=== PATIENT | female | born 1960 | race African-American/Black ===

== ENCOUNTER 2017-12-04 14:33 | Inpatient (IN) ==
[2017-12-04 15:30] LABS: Basophils % 0.5 % (0.0-0.8); Eosinophils # 0.1 10*3/uL (0.0-0.87); Eosinophils % 2.1 % (0.00-10.9); Hematocrit 36.3 VOL% (35.7-47.0); Hemoglobin 11.7 GM/DL (12.0-16.0); Immature Granulocytes % 0.3 %; Immature Granulocytes Absolute 0.01 #; Lymphocytes # 1.2 10*3/uL (1.4-4.0); Lymphocytes % 31.6 % (21.3-54.2); Mean Corpuscular HGB Conc 32.2 GM/DL (32-36); Mean Corpuscular Hemoglobin 27 PG (27-34); Mean Corpuscular Volume 84.2 FL (87-102); Monocytes # 0.4 10*3/uL (0.11-0.8); Monocytes % 10.1 % (1.7-12.7); Neutrophils # 2.1 10*3/uL (1.4-7.4); Neutrophils % 55.4 % (38.7-73.9); Platelet Count 172 T/CUMM (130-400); Red Blood Count 4.31 MC/CUMM (3.8-5.5); Red Cell Distribution Width 15.3 % (9.3-17.3); White Blood Count 3.8 T/CUMM (4-12)
[2017-12-04] MEDS ORDERED: ASPIRIN 325 MG TABLET PO STA (15:31)
[2017-12-04] MEDS ORDERED: ASPIRIN 325 MG TABLET ONE (15:33)
[2017-12-04 15:49] LABS: INR 0.9
[2017-12-04 15:51] LABS: Alanine Aminotransferase 23 U/L (13-56); Alkaline Phosphatase 114 U/L (45-117); Aspartate Amino Transferase 16 U/L (0-37); Bilirubin,Total < 0.39 MG/DL (0.2-1.0); Blood Urea Nitrogen 20 MG/DL (7-18); Glucose 80 MG/DL (74-106); Osmolality,Calculated 289.7 MOS/KG (273-304); Potassium 3.1 MMOL/L (3.5-5.1); Sodium 145 MMOL/L (136-145); Total Protein 7.7 G/DL (6.4-8.3); Troponin I Only < 0.015 NG/ML (0.00-0.045)
[2017-12-04] MEDS ORDERED: PANTOPRAZOLE 40 MG VIAL IV STA (15:57)
[2017-12-04] MEDS ORDERED: ONDANSETRON 4 MG/2 ML VIAL IV STA (15:57)
[2017-12-04] MEDS ORDERED: SODIUM CHLORIDE 0.9% 500 ML IV STA (15:57)
[2017-12-04] MEDS ORDERED: HYDROmorphone 2 MG/1 ML VIAL IV STA (15:57)
[2017-12-04] MEDS ORDERED: ALUM/MAG/SIMETH/LIDO VISC 1:1 30 ML BOTTLE PO STA (15:57)
[2017-12-04] MEDS ORDERED: PANTOPRAZOLE 40 MG VIAL IV ONE (16:43)
[2017-12-04] MEDS ORDERED: POTASSIUM CHLORIDE 20 MEQ TABLET PO STA (16:43)
[2017-12-04] MEDS ORDERED: ONDANSETRON 4 MG/2 ML VIAL ONE (16:43)
[2017-12-04] MEDS ORDERED: ALUM/MAG/SIMETH/LIDO VISC 1:1 30 ML BOTTLE PO ONE (16:43)
[2017-12-04] MEDS ORDERED: POTASSIUM CHLORIDE 20 MEQ TABLET PO ONE (17:00)
[2017-12-04 17:07] LABS: Apearance,Urine Slightly Hazy (Clear); Bilirubin,Urine Negative (Negative); Blood, Urine Negative (Negative); Glucose,Urine (UA) Negative (Negative); Hyaline Casts,Urine 1 /LPF (0-3); Ketones,Urine Negative (Negative); Mucus,Urine Occasional /LPF (Occasional); Nitrite,Urine Negative (Negative); Protein,Urine Negative; RBC,Urine 1 /HPF (0-4); Squamous Epithelial Cell,Urine Occasional /HPF (0-10); Urine Color Yellow (Yellow); Urine Specific Gravity 1.023 (1.001-1.035); Urine Urobilinogen < 2.0 EU/DL (0.2-1.0); WBC,Urine 4 /HPF (0-6)
[2017-12-04] MEDS ORDERED: ONDANSETRON 4 MG/2 ML VIAL IV PRN (20:41)
[2017-12-04] MEDS ORDERED: MORPHINE 2 MG/1 ML SYRINGE IV PRN (20:41)
[2017-12-04] MEDS: ACETAMINOPHEN 325 MG TABLET PO PRN (21:13)
[2017-12-04] MEDS: ENOXAPARIN 80 MG/0.8 ML SYRINGE SUBCUT SCH (21:14)
[2017-12-04] MEDS: DOCUSATE SODIUM 100 MG CAPSULE PO SCH (21:14)
[2017-12-04] MEDS: SODIUM CHLORIDE 0.9% 1,000 ML IV SCH (21:15)
[2017-12-05] MEDS: NITROGLYCERIN 2% OINT 1 INCH/GM PACK TOP SCH ×5 (00:07→18:20)
[2017-12-05 00:41] LABS: Basophils % 0.8 % (0.0-0.8); Eosinophils # 0.1 10*3/uL (0.0-0.87); Eosinophils % 3.4 % (0.00-10.9); Hematocrit 31.6 VOL% (35.7-47.0); Immature Granulocytes % 0.3 %; Immature Granulocytes Absolute 0.01 #; Lymphocytes # 1.7 10*3/uL (1.4-4.0); Lymphocytes % 44.8 % (21.3-54.2); Mean Corpuscular HGB Conc 31.6 GM/DL (32-36); Mean Corpuscular Hemoglobin 27 PG (27-34); Mean Corpuscular Volume 83.6 FL (87-102); Monocytes # 0.4 10*3/uL (0.11-0.8); Neutrophils # 1.5 10*3/uL (1.4-7.4); Neutrophils % 39.7 % (38.7-73.9); Platelet Count 150 T/CUMM (130-400); Red Blood Count 3.78 MC/CUMM (3.8-5.5); Red Cell Distribution Width 15.4 % (9.3-17.3); White Blood Count 3.8 T/CUMM (4-12)
[2017-12-05 01:16] LABS: Alanine Aminotransferase 18 U/L (13-56); Albumin 3.2 G/DL (3.4-5.0); Alkaline Phosphatase 98 U/L (45-117); Aspartate Amino Transferase 13 U/L (0-37); Bilirubin,Total < 0.39 MG/DL (0.2-1.0); Blood Urea Nitrogen 16 MG/DL (7-18); Calcium 8.1 MG/DL (8.5-10.1); Cholesterol 163 MG/DL (50-200); Glucose 105 MG/DL (74-106); HDL Cholesterol 72 MG/DL (40-60); Osmolality,Calculated 292.4 MOS/KG (273-304); Potassium 3.7 MMOL/L (3.5-5.1); Risk Ratio 2.26; Sodium 147 MMOL/L (136-145); Total Protein 5.6 G/DL (6.4-8.3); Triglycerides 75 MG/DL (2-150)
[2017-12-05] MEDS: ACETAMINOPHEN 325 MG TABLET PO PRN (13:08)
[2017-12-05] MEDS: LISINOPRIL 20 MG TABLET PO SCH (13:55)
[2017-12-05] MEDS: CHOLECALCIFEROL 5,000 UNIT TABLET PO SCH (13:55)
[2017-12-05] MEDS: ENOXAPARIN 80 MG/0.8 ML SYRINGE SUBCUT SCH (13:56)
[2017-12-05] MEDS: PANTOPRAZOLE 40 MG TABLET PO SCH (13:56)
[2017-12-05] MEDS: hydroCHLOROthiazide 12.5 MG CAPSULE PO SCH (13:56)
[2017-12-05] MEDS: NEBIVOLOL 5 MG TABLET PO SCH (13:56)
[2017-12-05] MEDS: ASPIRIN EC 81 MG TABLET PO SCH (13:56)
[2017-12-05] MEDS: DOCUSATE SODIUM 100 MG CAPSULE PO SCH ×2 (13:59→21:24)
[2017-12-06] MEDS: SODIUM CHLORIDE 0.9% 1,000 ML IV SCH (07:30)
[2017-12-06] MEDS: NITROGLYCERIN 2% OINT 1 INCH/GM PACK TOP SCH (07:31)
[2017-12-06] MEDS ORDERED: FERROUS SULFATE 325 MG TABLET PO SCH (09:00)
[2017-12-06] MEDS ORDERED: PROPOFOL 200 MG/20 ML VIAL IV ONE (09:00)
[2017-12-06] MEDS ORDERED: POTASSIUM GLUCONATE 500 MG TABLET PO SCH (09:00)
[2017-12-06] MEDS ORDERED: LIDOCAINE 2% 5 ML VIAL ONE (09:00)
[2017-12-06 13:00] VITALS: BP 120/71
[2017-12-06] MEDS: DOCUSATE SODIUM 100 MG CAPSULE PO SCH (15:28)
[2017-12-06] MEDS: ASPIRIN EC 81 MG TABLET PO SCH (15:29)
[2017-12-06] MEDS: hydroCHLOROthiazide 12.5 MG CAPSULE PO SCH (15:29)
[2017-12-06] MEDS: NEBIVOLOL 5 MG TABLET PO SCH (15:29)
[2017-12-06] MEDS: CHOLECALCIFEROL 5,000 UNIT TABLET PO SCH (15:29)
[2017-12-06] MEDS: PANTOPRAZOLE 40 MG TABLET PO SCH (15:29)
[2017-12-06] MEDS: LISINOPRIL 20 MG TABLET PO SCH (15:32)
== END 2017-12-06 16:45 | disposition home or self-care (01) | DRG 384 ==
LOC: N.ED 14:33 → N.EDINP 17:23 → N.TELEN 19:25
PROVIDERS: ADMIT Family Medicine; ATTEND Family Medicine